=== PATIENT | male | born 1955 | race Two or more races ===

== ENCOUNTER 2017-04-18 14:46 | Emergency (ER) | payer MEDICAID, OTHER ==
[~2017-04-18] VITALS: Ht 177.8 cm; Wt 77.1 kg
[2017-04-18 15:56] LABS: Basophils # (auto) 0 uL; Basophils % (auto) 0.4 % (0.0-2.0); Eosinophils # (auto) 0.2 uL; Eosinophils % (auto) 1.7 % (0.0-7.0); Hematocrit 45.5 % (41.0-53.0); Lymphocytes # (auto) 3.2 uL; Lymphocytes % (auto) 33.9 % (10.0-50.0); Mean Corpuscular Hemoglobin 31.2 pg (28.0-32.0); Mean Platelet Volume 7.8 fL (6.9-10.8); Monocytes # (auto) 0.6 uL; Monocytes % (auto) 6.2 % (0.0-12.0); Neutrophils # (auto) 5.5 uL; Neutrophils % (auto) 57.8 % (37.0-80.0); Nucleated Red Blood Cells % 0.1 %; Platelet Count (auto) 223 10^3/uL (140-450); White Blood Cell 9.4 10^3/uL (4.4-10.8)
[2017-04-18 16:20] LABS: Albumin 3.9 g/dL (3.4-5.0); Alkaline Phosphatase 125 U/L (45-117); Anion Gap 6 (5-15); Aspartate Aminotransferase 18 U/L (15-37); BUN/Creatinine Ratio 18.4; Bilirubin, Total 0.2 mg/dL (0.2-1.0); Blood Urea Nitrogen 14 mg/dL (7-18); Calcium 8.9 mg/dL (8.5-10.1); Carbon Dioxide 26 mmol/L (21-32); Chloride 109 mmol/L (98-107); GFR African American 134 mL/min; GFR Non-African American 110 mL/min; Glucose 93 mg/dL (74-106); Potassium 3.8 mmol/L (3.5-5.1); Sodium 141 mmol/L (136-145); Total Protein 7.7 g/dL (6.4-8.2)
[2017-04-18 17:05] VITALS: BP 125/67
== END 2017-04-18 17:16 | disposition home or self-care (01) ==
LOC: ER 14:46
DX: G51.0 Bell's palsy (principal); F17.210 Nicotine dependence, cigarettes, uncomplicated
CPT/HCPCS: 36415; 70450; 80053; 84484; 85025; 93005

== ENCOUNTER 2020-09-21 13:06 | Emergency (ER) | payer OTHER, MEDICAID ==
[~2020-09-21] VITALS: Ht 177.8 cm; Wt 81.6 kg
[2020-09-21] MEDS ORDERED: KETOROLAC TROMETH 60MG/2ML VIAL IM ONE (16:15)
[2020-09-21 18:56] VITALS: BP 145/73
== END 2020-09-21 17:16 | disposition home or self-care (01) ==
LOC: ER 13:06
DX: M23.92 Unspecified internal derangement of left knee (principal); M17.12 Unilateral primary osteoarthritis, left knee; E78.5 Hyperlipidemia, unspecified; F17.210 Nicotine dependence, cigarettes, uncomplicated
CPT/HCPCS: 73562; 96372; 99283; J1885